=== PATIENT | male | born 1980 | race Native Hawaiian/Other Pacific Islander ===

== ENCOUNTER 2016-10-31 22:26 | Emergency (ER) | payer OTHER ==
[2016-10-31 22:45] VITALS: BP 132/68; PULSE 71; RESP 16; TEMP 97.8; O2SAT 98
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
== END 2016-10-31 23:59 | disposition home or self-care (01) ==
LOC: C.ER 22:26
DX: S29.012A Strain of muscle and tendon of back wall of thorax, initial encounter (principal); V49.49XA Driver injured in collision with other motor vehicles in traffic accident, initial encounter; Y92.488 Other paved roadways as the place of occurrence of the external cause